=== PATIENT | female | born 1950 | race Caucasian/White ===

== ENCOUNTER → 2022-03-31 | Outpatient (CLI) | payer MEDICARE, SELFPAY | END | disposition home or self-care (01) | PROVIDERS: Referring Provider Urology; Visit Provider Urology | DX: N30.01 Acute cystitis with hematuria (principal) | CPT/HCPCS: 87077; 87086; 87088; 87186 ==

== ENCOUNTER 2022-07-08 10:55 | Day surgery (SDC) | payer MEDICARE, SELFPAY ==
[2022-07-08 11:50] VITALS: BP 146/71; PULSE 68; RESP 16; TEMP 36.1; O2SAT 98; BMI 33.7
[2022-07-08] MEDS: Lactated Ringers 1,000 ML 15 ML IV (12:08)
[2022-07-08 12:10] LABS: Bedside Glucose 113 mg/dL (74-106)
--- NOTE | 2022-07-08 13:13 | DCINST_ITS ---
Discharge Instructions Diet Discharge Diet: No restrictions, Light diet - advance as tolerated and Soft diet Activity Discharge Activity: Return to Normal Activity Follow Up Care Please Follow Up With: Compa Wright MD When: next week Test Results: Test results from this visit will be discussed in further detail at your follow- up appointment, if applicable. Discharge Plan Admission Primary Reason for Your Visit: stage I interstim therapy Attending Provider: Compa Wright Primary Care Provider: Aspen Lin Discharge Orders/Prescriptions Prescriptions: New ciprofloxacin HCl [Cipro] 500 mg tablet 500 mg PO BID Qty: 6 0RF oxycodone-acetaminophen 5-325 mg tablet 1 tab PO Q6H PRN (Reason: pain) 7 Days Qty: 10 0RF Continued metformin 500 mg Tablet 500 mg PO DAILY atorvastatin 80 mg Tablet 80 mg PO QHS pioglitazone [Actos] 45 mg Tablet 45 mg PO DAILY aspirin 81 mg Tablet,Delayed Release (Dr/Ec) 81 mg PO DAILY citalopram 20 mg Tablet 20 mg PO DAILY lisinopril 10 mg Tablet 10 mg PO DAILY metoprolol succinate 25 mg Tablet Extended Release 24 Hr 25 mg PO BID Referrals / Follow Up: Aspen Lin MD [Primary Care Provider] - Compa Wright MD [Med Staff - Active Staff] - Disposition Disposition (needs filled in before D/C Order can be placed): Home, Self Care
--- NOTE | 2022-07-08 13:14 | PCM.OPRPT ---
Report of Operation Date of Procedure: 07/08/22 Pre-Operative Diagnosis: Urge incontinence Post-Operative Diagnosis: Same Surgery/Procedure Performed:: Stage I InterStim therapy implant Description of Surgical Findings:: The patient presents to the operating room for placement of stage I interstim therapy. In the preoperative setting she is failed medical management for the patient urge incontinence and severe frequency of urination, a voiding diary was reviewed. The patient understands these is no guarantees that in the future the InterStim therapy will keep working to the patient's satisfaction and its always possible and it may need to have a surgical revision, change in implant, possible revision or removal of implant. We also talk about the risks of pain with stimulation, bleeding and infection or any injury to nerves or bony structures and the tailbone area. After reviewing all this with the patient in the preoperative area she signed the consent form and we proceeded with stageI interstim therapy implant. Patient was brought back to the operating room and placed supine on the table and then transferred to facedown the table and underwent sedation with comfort hugging a pillow. Patient's lower back was prepped and draped in usual sterile fashion, I then palpated the bony landmarks identify the tailbone the sacrum and the pocket area was identified where the lead investigator would be implanced and also the lead. Fluoroscopy was brought in to identify the pelvis we identify the spinous processes of the pelvic bone we used a finder needle to lay across the spinous process to the approximate the location of the S3 foramen. I then identified the lateral borders of the foramen using the other spinal needle. Under this the skin was then marked and potential entrances were by approximation and bony landmarks using fluoroscopy. I then infiltrated the skin about 2 cm up above the approximation of the S3 foramen and then used the needle within the stage I InterStim kit to go straight down to the potential S3 foramen spot marching along the sacrum until the needle electrode dropped into what appeared to be the S3 foramen. Under fluoroscopy in AP and lateral veiw I confirmed that I had the lead in the S3 foramen, I then stimulated the needle and had good sue response and had toe flexion but no calf rotation, confirm placement of the lead in the S3 Foremen. I then placed the guide through the needle the stylette was removed and then the needle was removed over the guide an incision was made into the skin and then through the incision incision and over the guide I introduced the sheath I followed the sheath under fluoroscopy until the marker on the sheath was three fourths down from the anterior plate of the sacrum. Once this was in good position then the stylette was removed and through the sheath I then introduced the stage I InterStim stimulator lead, I then checked the lead for stimulation of sue and toe flexion at all 4 sites 0, 1, 2, 3 and had good response with sue and toe flexion and pleased with the placement of the lead. Under fluoroscopy I captured the placement the lead this was documented both in AP and lateral views. I then removed the stylette within the lead and then pulled back in the sheath of the deployed the tines on the lead to secure the lead and the sacrum and the S3 foramen. Another fluoroscopic check was done to make sure no movement of the lead. After this was confirmed then pocket was created in the patient's lateral side where the permanent lead was then attached to the temporary extension. We then tunneled the temporary extension wire with the provided tunneler in the kit to index incision site beyond the midline. After tunneling the wire then the wires connected to the external Bluetooth device. We then placed a suture knot in the temporary extension to prevent migration and then placed a temper extension in the pocket and the pocket Was closed in 2 layers we then used tapes and the provided belt in the kit to secure the temporary lead to the patient we then confirmed with [employer] rep the lead was working and in the postoperative setting the patient will have the InterStim therapy set and programmed. Surgeon: Compa Wright Type of Anesthesia: MAC Admit VTE Documentation VTE Present on Admission: No VTE Mechan Device Prophylaxis: SCD's VTE Pharm Prophylaxis ordered?: No
[2022-07-08] MEDS: Cefazolin 2 GM in 0.9% Normal Saline 100 ML IV (13:25)
--- NOTE | 2022-07-08 13:43 | RAD_ITS ---
STUDY: X-RAY - PELVIS REASON FOR EXAM: Female, 71 years old. INTERSTIM THERAPY 1 TECHNIQUE: One view of the pelvis was obtained. COMPARISON: None. FINDINGS: Fluoroscopic services provided for InterStim therapy placement. RAD/Pelvis 1 or 2 Views IMPRESSION: Fluoroscopic services provided for InterStim placement. Electronically Signed: Chavez Barnes MD at 15:38 EST ,
[2022-07-08] MEDS: Lidocaine 1% (30 ml sdv) 30 ML Vial (13:50)
[2022-07-08 14:25] VITALS: BP 146/71; BP 162/74; PULSE 74; RESP 16; TEMP 36.7; O2SAT 93
[2022-07-08 14:30] VITALS: BP 146/71; BP 173/74; PULSE 70; RESP 16; O2SAT 94
[2022-07-08 14:35] VITALS: BP 146/71; BP 163/74; PULSE 71; RESP 16; O2SAT 95
[2022-07-08 14:40] VITALS: BP 146/71; BP 178/83; PULSE 71; RESP 16; TEMP 36.1; O2SAT 94
[2022-07-08 15:24] VITALS: BP 146/71; BP 147/92; PULSE 79; RESP 18; TEMP 36.1; O2SAT 95
== END 2022-07-08 15:43 | disposition home or self-care (01) ==
LOC: SDC 10:57 → AC 11:08
PROVIDERS: PCP Family Medicine; Referring Provider Urology; Visit Provider Urology
PROC: (CPT 64581; principal; 2022-07-08 13:15)
DX: Z45.42 Encounter for adjustment and management of neurostimulator (principal); N39.41 Urge incontinence; R35.0 Frequency of micturition; E11.9 Type 2 diabetes mellitus without complications; I10 Essential (primary) hypertension; F32.9 Major depressive disorder, single episode, unspecified; Z79.82 Long term (current) use of aspirin; Z79.84 Long term (current) use of oral hypoglycemic drugs; Z79.899 Other long term (current) drug therapy
CPT/HCPCS: 64581; 00630; 72170; 76000; 82962; J7120; C1820

== ENCOUNTER 2022-07-22 11:18 | Day surgery (SDC) | payer MEDICARE, SELFPAY ==
[2022-07-22] VITALS (7 sets, daily range): BP systolic 102–156; BP diastolic 75–110; PULSE 76–84; RESP 16–18; TEMP 36.3–36.9; O2SAT 92–97; BMI 34.4
[2022-07-22] MEDS: Lactated Ringers 1,000 ML 15 ML IV (12:11)
[2022-07-22 12:20] LABS: Bedside Glucose 121 mg/dL (74-106)
[2022-07-22] MEDS: Cefazolin 2 GM in 0.9% Normal Saline 100 ML IV (14:58)
[2022-07-22] MEDS: Lidocaine 1% (30 ml sdv) 30 ML Vial (15:20)
--- NOTE | 2022-07-22 15:33 | DCINST_ITS ---
Discharge Instructions Diet Discharge Diet: No restrictions, Light diet - advance as tolerated and Soft diet Activity Discharge Activity: Return to Normal Activity Dressing / Incision Cleanse incision/area with: Keep Dressing Clean & Dry Follow Up Care Please Follow Up With: Compa Wright MD When: Call for an appointment Test Results: Test results from this visit will be discussed in further detail at your follow- up appointment, if applicable. Discharge Plan Admission Primary Reason for Your Visit: interstim stage II Attending Provider: Compa Wright Primary Care Provider: Aspen Lin Discharge Orders/Prescriptions Prescriptions: Continued metformin 500 mg Tablet 500 mg PO DAILY atorvastatin 80 mg Tablet 80 mg PO QHS pioglitazone [Actos] 45 mg Tablet 45 mg PO DAILY aspirin 81 mg Tablet,Delayed Release (Dr/Ec) 81 mg PO DAILY citalopram 20 mg Tablet 20 mg PO DAILY lisinopril 10 mg Tablet 10 mg PO DAILY metoprolol succinate 25 mg Tablet Extended Release 24 Hr 25 mg PO BID ciprofloxacin HCl [Cipro] 500 mg tablet 500 mg PO BID Qty: 6 0RF oxycodone-acetaminophen 5-325 mg tablet 1 tab PO Q6H PRN (Reason: pain) 7 Days Qty: 10 0RF Referrals / Follow Up: Aspen Lin MD [Primary Care Provider] - Compa Wright MD [Med Staff - Active Staff] - Disposition Disposition (needs filled in before D/C Order can be placed): Home, Self Care
--- NOTE | 2022-07-22 15:33 | PCM.HP.STD ---
HPI - General HPI Narrative VIRGNIIA RICE, is a 71 F who presents for stage II InterStim therapy implant PFSH Medical History Arthritis Back pain Bladder disease Cardiology follow-up encounter CPAP (continuous positive airway pressure) dependence Depression Diabetes Dietary restriction Family history of brain aneurysm Former smoker High cholesterol History of echocardiogram History of heart attack History of pain when walking History of stress test Hypertension Leg cramps Post-menopausal Restless legs Shortness of breath on exertion Wears dentures Wears glasses Wears hearing aid Home Medications aspirin 81 mg tablet,delayed release 81 mg PO DAILY 07/01/22 [History Last Taken 07/15/22] atorvastatin 80 mg tablet 80 mg PO QHS 07/01/22 [History Last Taken Unknown] citalopram 20 mg tablet 20 mg PO DAILY 07/01/22 [History Last Taken Unknown] lisinopril 10 mg tablet 10 mg PO DAILY 07/01/22 [History Last Taken 07/22/22] metformin 500 mg tablet 500 mg PO DAILY 07/01/22 [History Last Taken Unknown] metoprolol succinate 25 mg tablet,extended release 24 hr 25 mg PO BID 07/01/22 [History Last Taken 07/22/22] pioglitazone 45 mg tablet (Actos) 45 mg PO DAILY 07/01/22 [History Last Taken Unknown] ciprofloxacin HCl 500 mg tablet (Cipro) 500 mg PO BID #6 tabs 07/08/22 [Rx Last Taken Unknown] oxycodone-acetaminophen 5 mg-325 mg tablet 1 tab PO Q6H PRN pain 7 days #10 tabs 07/08/22 [Rx Last Taken Unknown] Allergy/AdvReac Type Severity Reaction Status Date / Time No Known Allergies Allergy Verified 07/22/22 11:46 Surgical History (Updated 07/20/22 @ 09:18 by Lisa Irby) History of bladder surgery History of quadruple bypass Hx of external ear surgery Hx of total hip arthroplasty Social History Smoking Status: Former smoker Vital Signs Vital Signs Vital Signs: 07/22/22 11:52 07/22/22 11:52 Temperature 98.5 F Temperature Source Temporal Pulse Rate 78 Respiratory Rate 16 Respiratory Pattern Normal Blood Pressure 146/75 H Blood Pressure Mean 98 Blood Pressure Source Monitor Blood Pressure Position Semi-Fowlers Blood Pressure Location Left Arm Pulse Ox 92 Oxygen Delivery Method Room Air Weight Weight: 97 kg Body Mass Index (BMI) 34.4 Results Lab / Micro Data Labs: Laboratory Results - last 24 hr 07/22/22 12:01: POC Glucose 121 H
--- NOTE | 2022-07-22 15:33 | PCM.OPRPT ---
Report of Operation Date of Procedure: 07/22/22 Pre-Operative Diagnosis: Urge incontinence and frequency Post-Operative Diagnosis: Same Surgery/Procedure Performed:: Stage II interstim therapy implant. Description of Surgical Findings:: Patient was brought back to the operating room and placed supine on the table and then transferred to facedown the table and underwent sedation with comfort hugging a pillow. Patient's lower back was prepped and draped in usual sterile fashion, I then palpated the bony landmarks identify the tailbone the sacrum and the pocket area was identified where the lead sustainability specialist would be implanted and also the lead. The temporary lead was then cut off from the Bluetooth device. We made an incision over the pocket and remove the temporary extension from the permanent lead and the suture that was holding the temporary extension was removed. The end of the permanent lead was inspected and there was no signs of any damage and was cleaned thoroughly. We then brought over the generator from the kit. After this was confirmed then pocket opened up to allow for the placement of the generator and the patient's lateral side. Then the generator was opened and I made sure I cleaned the lead completely I attached the lead to the generator use the screwdriver provided in the kit to then secure the bolt secure the lead to the generator prior to doing this again checked the lead 0, 1, 2, 3 and there was still good stimulation at all sites. I then placed the lead into the generator and the generator was put into the pocket that was created. I made sure that the generator was placed with InterStim labeling side up and was oriented appropriately. I then checked for impedance using the [employer] rep had the device checked in the impedance was normal with no abnormal impedance and all leads in all 4-lead sites were programmed and responded normally. The generator was then programmed to ensure good proper stimulation of the InterStim device this was done in the operating room, after complex programming was completed we finished with fluoroscopy I then closed the insertion site with subcuticular stitches and Steri-Strips and bandages and then closed the pocket with subcuticular stitches and Steri-Strips and bandages. The patient's anesthetic was reversed patient was taken back to the recovery room in stable condition and further training and education will be given to the patient regarding how to use the new InterStim therapy. Surgeon: Compa Wright Type of Anesthesia: General Admit VTE Documentation VTE Present on Admission: No VTE Mechan Device Prophylaxis: SCD's VTE Pharm Prophylaxis ordered?: No
== END 2022-07-22 16:27 | disposition home or self-care (01) ==
LOC: SDC 11:22 → AC 11:25
PROVIDERS: PCP Family Medicine; Referring Provider Urology; Visit Provider Urology
PROC: (CPT 64590; principal; 2022-07-22 13:20)
DX: Z45.42 Encounter for adjustment and management of neurostimulator (principal); E11.9 Type 2 diabetes mellitus without complications; N39.41 Urge incontinence; Z87.891 Personal history of nicotine dependence; Z79.84 Long term (current) use of oral hypoglycemic drugs; Z79.82 Long term (current) use of aspirin
CPT/HCPCS: 64590; 00300; 82962; J7120; C1767; J2405

== ENCOUNTER → 2022-10-13 | Outpatient (CLI) | payer MEDICARE, SELFPAY | END | disposition home or self-care (01) | PROVIDERS: PCP Family Medicine; Visit Provider Urology | DX: R31.9 Hematuria, unspecified (principal) | CPT/HCPCS: 87077; 87086; 87088; 87186 ==

== ENCOUNTER → 2023-03-01 | Outpatient (CLI) | payer MEDICARE, SELFPAY | END | disposition home or self-care (01) | LOC: LABSPEC 16:37 | PROVIDERS: PCP Family Medicine; Referring Provider Urology; Visit Provider Urology | DX: R31.0 Gross hematuria (principal) | CPT/HCPCS: 87077; 87086; 87088; 87186 ==

== ENCOUNTER → 2024-03-09 | Outpatient (CLI) | payer MEDICARE, SELFPAY | END | disposition home or self-care (01) | PROVIDERS: PCP Family Medicine; Referring Provider Urology; Visit Provider Urology | DX: N39.0 Urinary tract infection, site not specified (principal) | CPT/HCPCS: 87077; 87086; 87088; 87186 ==

== ENCOUNTER → 2024-07-10 | Outpatient (CLI) | payer MEDICARE, SELFPAY | END | disposition home or self-care (01) | LOC: LABSPEC 15:35 | PROVIDERS: PCP Family Medicine; Referring Provider Urology; Visit Provider Urology | DX: R30.0 Dysuria (principal) | CPT/HCPCS: 87077; 87086; 87088; 87186 ==

== ENCOUNTER → 2025-04-03 | Outpatient (CLI) | payer MEDICARE, SELFPAY | END | disposition home or self-care (01) | LOC: LABSPEC 15:44 | PROVIDERS: PCP Family Medicine; Referring Provider Urology; Visit Provider Urology | DX: N39.0 Urinary tract infection, site not specified (principal) | CPT/HCPCS: 87086; 87088; 87186 ==